=== PATIENT | female | born 1950 | race Caucasian/White ===

== ENCOUNTER 2017-03-14 12:36 | Outpatient (CLI) | payer OTHER | END 2017-03-14 12:42 | disposition home or self-care (01) | LOC: RAD 12:36 | DX: R07.81 Pleurodynia (principal) ==

== ENCOUNTER 2017-04-13 14:33 | Outpatient (CLI) | payer OTHER | END 2017-04-13 16:15 | disposition home or self-care (01) | LOC: SONOGRAMA 14:33 | DX: E04.2 Nontoxic multinodular goiter (principal) ==

== ENCOUNTER 2017-05-09 10:05 | Outpatient (CLI) | payer OTHER | END 2017-05-09 10:11 | disposition home or self-care (01) | LOC: SONOGRAMA 10:05 | DX: E04.1 Nontoxic single thyroid nodule (principal) ==

== ENCOUNTER 2017-11-21 16:07 | Outpatient (CLI) | payer OTHER ==
[~2017-11-21] VITALS: Ht 167.6 cm; Wt 68.0 kg
== END 2017-11-21 17:00 | disposition home or self-care (01) ==
LOC: OFIC 805 16:07
DX: R49.0 Dysphonia (principal); J30.9 Allergic rhinitis, unspecified; K21.0 Gastro-esophageal reflux disease with esophagitis

== ENCOUNTER 2018-07-26 10:47 | Outpatient (CLI) | payer OTHER | END 2018-07-26 10:52 | disposition home or self-care (01) | LOC: RAD 501 10:47 | DX: J45.31 Mild persistent asthma with (acute) exacerbation (principal) ==

== ENCOUNTER 2018-10-10 07:07 | Outpatient (CLI) | payer OTHER | END 2018-10-10 07:18 | disposition home or self-care (01) | LOC: NUCLEAR 07:07 | DX: M45.1 Ankylosing spondylitis of occipito-atlanto-axial region (principal); M85.88 Other specified disorders of bone density and structure, other site; M81.0 Age-related osteoporosis without current pathological fracture | CPT/HCPCS: 78315; A9503; 77080 ==

== ENCOUNTER 2019-09-19 11:13 | Outpatient (CLI) | payer OTHER | END 2019-09-19 11:20 | disposition home or self-care (01) | LOC: SONOGRAMA 11:13 | PROVIDERS: ATTEND Pathology Anatomic Pathology & Clinical Pathology | DX: E06.3 Autoimmune thyroiditis (principal) ==

== ENCOUNTER 2023-11-23 08:48 | Outpatient (CLI) | payer OTHER | END 2023-11-23 08:49 | disposition home or self-care (01) | LOC: NUCLEAR 08:48 | PROVIDERS: ATTEND Internal Medicine Cardiovascular Disease | DX: I20.1 Angina pectoris with documented spasm (principal) | CPT/HCPCS: 78452; 93017; A9500; J0153 ==

== ENCOUNTER 2024-11-02 14:14 | Emergency (ER) | payer OTHER ==
[~2024-11-02] VITALS: Ht 167.6 cm; Wt 64.4 kg
[2024-11-02] MEDS ORDERED: LEVOTHYROXINE25 MCG (14:46)
[2024-11-02] MEDS ORDERED: 0.9 % SODIUM CHLORIDE 1,000 ML IV STA (16:29)
[2024-11-02] MEDS ORDERED: FAMOTIDINE/PF 20 MG/2 ML VIAL ONE (16:29)
[2024-11-02] MEDS ORDERED: FAMOTIDINE/PF 20 MG/2 ML VIAL IV PUSH STA (16:30)
[2024-11-02] MEDS ORDERED: ACETAMINOPHEN 325 MG TABLET PO STA (16:31)
[2024-11-02 17:03] LABS: BASO % 0.3 % (0.1-1.2); EOS # 0.00 (0.04-0.54); EOS % 0.0 % (0.7-7.0); LYMPH # 1.14 (1.18-3.74); LYMPH % 14.4 % (19.3-53.1); MEAN PLATELET VOLUME 9.80 fl (9.4-12.4); MONO # 0.70 (0.24-0.82); MONO % 8.9 % (4.7-12.5); NEUT # 6.01 (1.56-6.13); NEUT % 76.0 % (34.0-71.1); RED CELL DISTRIBUTION WIDTH 13.1 % (11.6-14.4)
[2024-11-02 17:32] LABS: ALT/SGPT 53.0 U/L (12-78); AST/SGOT 37.0 U/L (15-37); BILIRUBIN TOTAL 0.68 mg/dL (0.3-1.2); BUN CREA RATIO 19.0 (7.0-25.0); CREATININE SERUM 0.83 mg/dL (0.55-1.02); GFR 67.2; GLOBULINA 3.9 G/DL (2.4-3.5); GLUCOSE FASTING 128.0 mg/dL (65-100); OSMOLALITY SERUM 277.0 MOSM/KG (275-295)
[2024-11-02] MEDS ORDERED: LEVALBUTEROL HCL 1.25 MG/3 ML SOLUTION IH STA (18:19)
[2024-11-02] MEDS ORDERED: IPRATROPIUM BROMIDE 0.5 MG/2.5 ML AMPUL.NEB IH SCH (18:30)
[2024-11-02] MEDS ORDERED: LEVALBUTEROL HCL 1.25 MG/3 ML SOLUTION IH ONE (18:40)
[2024-11-02] MEDS ORDERED: IPRATROPIUM BROMIDE 0.5 MG/2.5 ML AMPUL.NEB IH ONE (18:40)
[2024-11-02 19:41] LABS: URINE APPEARANCE Clear; URINE BILIRRUBIN Negative (NEGATIVE); URINE BLOOD Small; URINE COLOR Yellow; URINE GLUCOSE Negative (NEGATIVE); URINE KETONE 15 (NEGATIVE); URINE LEUKOCYTE Trace; URINE NITRATE Negative; URINE PROTEIN 30 (NEGATIVE); URINE UROBILINOGEN 0.2 E.U./dl
[2024-11-02 19:45] LABS: URINE BACTERIA 206.3 uL (0.0-1933); URINE EPITHELIAL CELLS 11.8 uL (0.0-38.8); URINE RBC 5.2 uL (0.0-20.8); URINE WBC 8.7 uL (0.0-23.2)
[2024-11-02 19:49] LABS: TYPE CELLS SQUAMOUS; URINE CAST 1.02 uL (0.0-1.40)
== END 2024-11-02 19:40 | disposition home or self-care (01) ==
LOC: ER 14:14
PROVIDERS: General Practice
DX: J10.1 Influenza due to other identified influenza virus with other respiratory manifestations (principal); Z88.0 Allergy status to penicillin; Z88.5 Allergy status to narcotic agent
CPT/HCPCS: 36415; 71046; 94640; 96365; 96366; 99283; J3490; J7030